=== PATIENT | female | born 1950 | race Caucasian/White ===

== ENCOUNTER → 2018-04-02 | Outpatient (CLI) | payer OTHER | LOC: RAD 10:37 | DX: Z12.31 Encounter for screening mammogram for malignant neoplasm of breast (principal) ==

== ENCOUNTER → 2019-04-30 | Outpatient (CLI) | payer OTHER | LOC: RAD 14:14 | DX: Z12.31 Encounter for screening mammogram for malignant neoplasm of breast (principal) ==

== ENCOUNTER → 2019-09-05 | Outpatient (CLI) | payer OTHER ==
[~2019-09-05] MED LIST: ASA81BEC PO; ASPIRIN325 PO; BYSTOLIC 5 MG5 M1 PO; CALCIUM500 MG PO; EDARBI40 MG PO; EFFIENT10 MG PO; FISH OIL 1,001000 M3 PO; LEVO-T100 MCG PO; LIPITOR 20 MG T20 M1 PO; NEPHRONEX900 MCG/5 PO
== END ==
LOC: CAT 07:46 → SJCVCIMAG 15:30 → CAT 09-06 07:46 → SJCVCIMAG 09-06 15:19
PROVIDERS: ATTEND Internal Medicine Cardiovascular Disease
DX: Z13.6 Encounter for screening for cardiovascular disorders (principal); E78.00 Pure hypercholesterolemia, unspecified; I25.10 Atherosclerotic heart disease of native coronary artery without angina pectoris; R94.31 Abnormal electrocardiogram [ECG] [EKG]; R07.89 Other chest pain; I44.7 Left bundle-branch block, unspecified; I10 Essential (primary) hypertension; R53.83 Other fatigue; E78.5 Hyperlipidemia, unspecified; E03.9 Hypothyroidism, unspecified

== ENCOUNTER → 2019-09-06 | Outpatient (CLI) | payer OTHER | LOC: SJCVCIMAG 07:46 | PROVIDERS: ATTEND Internal Medicine Cardiovascular Disease | DX: I08.1 Rheumatic disorders of both mitral and tricuspid valves (principal); I44.7 Left bundle-branch block, unspecified; R94.31 Abnormal electrocardiogram [ECG] [EKG]; I10 Essential (primary) hypertension ==

== ENCOUNTER → 2019-09-12 | Outpatient (CLI) | payer OTHER | LOC: SJCVCIMAG 07:35 | DX: I44.7 Left bundle-branch block, unspecified (principal); I10 Essential (primary) hypertension; E78.5 Hyperlipidemia, unspecified; Z79.899 Other long term (current) drug therapy ==

== ENCOUNTER 2019-09-20 06:55 | Observation (INO) | payer OTHER ==
[~2019-09-20] VITALS: Ht 162.6 cm; Wt 70.8 kg
[2019-09-20] VITALS (11 sets, daily range): BP systolic 101–145; BP diastolic 40–73
[2019-09-20 07:55] LABS: HEMATOCRIT 44.4 % (37.0-47.0); HEMOGLOBIN 15.3 gm/dL (12.0-15.0); MCH 31.6 pg (26.0-34.0); MCHC 34.6 g/dL (28.0-37.0); MCV 91.2 fL (80.0-100.0); RBC 4.86 mil/uL (4.20-5.00); RDW 13.5 % (10.5-14.5); WBC 7.3 thou/uL (4.0-11.0)
[2019-09-20] MEDS ORDERED: NEPHRONEX900 MCG/5 PO (08:04)
[2019-09-20] MEDS ORDERED: FISH OIL 1,001000 M3 PO (08:06)
[2019-09-20] MEDS ORDERED: CALCIUM500 MG PO (08:06)
[2019-09-20] MEDS ORDERED: LEVO-T100 MCG PO (08:07)
[2019-09-20] MEDS ORDERED: EDARBI40 MG PO (08:09)
[2019-09-20 08:10] LABS: CALCIUM 9.4 mg/dL (8.5-10.1); CREATININE 0.9 mg/dL (0.6-1.0); POTASSIUM 4.2 mmol/L (3.5-5.1)
[2019-09-20] MEDS ORDERED: ASA81BEC PO (08:10)
[2019-09-20] MEDS ORDERED: LIPITOR 20 MG T20 M1 PO (08:11)
--- NOTE | 2019-09-20 08:15 | EKG ---
[facility] [place] [place] [address] ELECTROCARDIOGRAM REPORT Name: OSITO KRAMER Room #: [facility]#: [id number] Admission: 09/20/19 Attend Phys: Toney Castañeda MD, Discharge: Date of : 52 Report #: [id number] THIS REPORT FOR: cc: Jose Alejandro Pretty MD, Stany A. MD Lundgren, Craig H. MD [facility] ~ THIS REPORT FOR: //name// [facility] Test Date: 2019-09-20 Test Time: 07:41:52 Pat Name: OSITO KRAMER Department: Room: Gender: F Digital Assistant: RAFAEL : 1950 Requested By: Toney Castañeda Order Number: [id number] MD: Tushar Sorto Measurements Intervals [place] Rate: 57 P: 56 [place]: 184 QRS: 2 QRSD: 152 T: 87 QT: 443 QTc: 432 Interpretive Statements Sinus bradycardia Left bundle branch block No previous ECG available for comparison Electronically Signed On 09-20-2019 8:13:49 CDT by Tushar Sorto [email or web address] <ELECTRONICALLY SIGNED> By: Tushar Sorto MD, [facility] 09/20/1913 0 Tushar Sorto MD, [facility] /EPI
[2019-09-20] MEDS ORDERED: ASPIRIN325 PO (09:26)
[2019-09-20] MEDS ORDERED: EFFIENT10 MG PO (09:26)
[2019-09-20] MEDS ORDERED: BYSTOLIC 5 MG5 M1 PO (09:26)
--- NOTE | 2019-09-20 10:33 | NUR ---
REC PT FROM APPLICATIONS INSTRUCTOR WITHOUT REPORT, YET WAS ABLE TO ASK QUESTIONS FROM THE RNS THAT DELIVERED. REPORT WAS GIVEN TO KASHMIR RN HERE AND HE SHOWED ME ONLY THREE LINES OF FACTS, NS, AND CLOSURE. PT IS A&OX4, AMB INDEPEDNENTLY NORMALLY, VERY AWARE OF RESTRICTIONS AND IS COMPLYIG SAVE FOR HEAD COMING UP OFF PILLOW. SEE SEPARATE INTERVENTIONS FOR ASSESSMENTS/INTERVENTIONS/VITAL SIGNS POST CARDIAC CATH. [facility] SITE WNL, CDI, SHES QUITE TALKATIVE. WILL DO ADMISSION
--- NOTE | 2019-09-20 16:58 | CATHLAB ---
[facility] [place] [address] INVASIVE PROCEDURE REPORT Name: OSITO KRAMER Room #: 209-P ADM René Lawton#: [id number] Admission: 09/20/19 Attend Phys: Toney Castañeda MD, Discharge: Date of : 52 Report #: [id number] THIS REPORT FOR: cc: Jose Alejandro Pretty MD, Stany A. MD Mancuso, Gerald M. MD [facility] ~ APPROVED REPORT Study performed: 09/20/2019 07:26:42 Patient Details Patient Status: Out-Patient Room #: The patient is a 68 year-old female Event Personnel Toney Castañeda Program Officer, Kavon Alan RN RN, Vel Pal RN, Chelsea Sanches Monitor, Tammy Benites RTR, HAND PASTER Scrub Procedures Performed Art Access - R femoral artery* Left Heart Cath w/or w/o Coronaries 0339011 [facility] [address]187 Initial Mod Sed Same Phys/QHP Gr [id number] Mod Sed Same Phys/QHP Ea 953779 KARLA Place w/wo Plasty Single CIRC 042239 Aortogram Abdominal Peripheral Angio 009881 Indication Chest pain Procedure Narrative The Right Groin^ was infiltrated with 1% Lidocaine subcutaneous anesthesia. A PINNACLE 6FR Sheath #[id number] sheath was inserted into the RFA 6F^. Coronary angiography was performed using coronary diagnostic catheters. The right coronary system was accessed and visualized with a JR4 catheter. The left coronary system was accessed and visualized with a JL4 catheter. The left ventricle was accessed and visualized with a STR PIG catheter. Left ventriculogram was performed in 30 degree projection. The patient tolerated the procedure well and there were no complications associated with the procedure. There was no hematoma. Intraoperative Conscious Sedation Sedation start time: 838 Case end Time: 949 Fentanyl 50 mcg Versed 1 mg [facility] [place] [address] INVASIVE PROCEDURE REPORT Name: NIAOSITO OLAMIDE Room #: 209-P [facility] IN ..#: [id number] Admission: 09/20/19 Attend Phys: Toney Castañeda, Discharge: Date of : 52 Report #: [id number] Fluoro Time: 4.18 minutes Dose: DAP 4288.70 cGycm2 549 mGy Contrast Type and Amount: Omnipaque 100 ml Hemodynamics The aortic pressure is 104/32 mmHg with a mean of 48 mmHg. The left ventricular pressure is 132/13 mmHg with a mean of mmHg. The left ventricular end diastolic pressure is 23 mmHg. PCI Technique Lesion Percutaneous coronary intervention was performed on the Unspecified. A 6FR LAUNCHER EBU 3.0 #[id number] Guide Catheter was used to engage the ostium. A Luge Wire .014 x 182CM #[id number] Interventional Guidewire was used to cross the lesion. BALLOON DILATION A Balloon catheter Sprinter OTW 2.5 x 12 #[id number] was inserted and inflated up to 4.00atm for 18seconds. Additional Inflation: 6.00atm for 21seconds. STENT DEPLOYMENT A stent RESOLUTE MARÍA OTW 2.5 X 12 #[id number] was inserted and inflated up to 12atm for 32seconds. Conclusion 1. Successful PTCA stent of a proximal mid high-grade circumflex OM stenosis of 90 to 95% to 0% with placement of a 2.5 x 12 resolute maría drug-eluting stent FELIX grade III flow moderate distribution distally proximal circumflex with a 50% eccentric lesion will follow #2 left main short free of disease giving rise to LAD and circumflex #3 the LAD is diffusely diseased slightly attenuated with a smaller distal vessel. Although no area for intervention. #4 dominant right coronary with moderate diffuse disease proximally and distally smaller PDA TANESHA but no occlusive disease for intervention. #5 normal ventricular size and systolic function EF 60% #6 abdominal aortogram is intact single renal arteries are patent brisk distal flow no aneurysm. Recommendations and plan continue aggressive risk factor [facility] [address] [place] [address] INVASIVE PROCEDURE REPORT Name: OSITO KRAMER OLAMIDE Room #: 209-P [facility] IN M.R.#: [id number] Admission: 09/20/19 Attend Phys: Toney Castañeda, Discharge: Date of : 52 Report #: [id number] modification. Dual antiplatelet therapy initiated. Transferred to CCU to follow stent protocol. Pain-free and hemodynamically stable. <ELECTRONICALLY SIGNED> By: Toney Castañeda MD, FACC 09/20/191654 54 54 Toney Castañeda MD, FACC /INF
[2019-09-21 00:54] VITALS: BP 128/64
--- NOTE | 2019-09-21 03:48 | NUR ---
ASSESSMENTS CHARTED, MEDS GIVEN CHARTED PATIENT RESTING IN BED AT START OF SHIFT. HAD BEEN TO THE SUGAR GRINDER DURING DAY, RECEIVED STENT TO CIRC. SR/SB ON TELEMETRY, ON ROOM AIR, DENIES PAIN, UP AT JUNE IN ROOM. RIGHT GROIN SITE IS SOFT AND DRY. PLAN OF CARE IS TO DISCHARGE IN AM. ORDERS ALREADY ON CHART. FALL PRECAUTIONS IN PLACE DURING SHIFT.
[2019-09-21 03:58] LABS: HEMATOCRIT 42.2 % (37.0-47.0); HEMOGLOBIN 14.7 gm/dL (12.0-15.0); MCH 31.4 pg (26.0-34.0); MCHC 34.7 g/dL (28.0-37.0); MCV 90.4 fL (80.0-100.0); RBC 4.67 mil/uL (4.20-5.00); RDW 13.4 % (10.5-14.5); WBC 7.9 thou/uL (4.0-11.0)
[2019-09-21 04:09] VITALS: BP 100/31
[2019-09-21 05:27] LABS: ALBUMIN 3.3 g/dL (3.4-5.0); CALCIUM 8.9 mg/dL (8.5-10.1); CREATININE 0.9 mg/dL (0.6-1.0); POTASSIUM 4.1 mmol/L (3.5-5.1); TOTAL BILIRUBIN 0.3 mg/dL (0.2-1.0); TOTAL PROTEIN 6.6 g/dL (6.4-8.2); TROPONIN-I 0.19 ng/mL (<0.06)
[2019-09-21 07:30] VITALS: BP 116/48
--- NOTE | 2019-09-21 09:43 | EKG ---
[facility] [place] [address] ELECTROCARDIOGRAM REPORT Name: OSITO KRAMER Room #: 209-P [facility] M.R.#: [id number] Admission: 09/20/19 Attend Phys: Toney Castañeda MD, Discharge: Date of : 52 Report #: [id number] THIS REPORT FOR: cc: Jose Alejandro Pretty MD, Stany A. MD Couchonnal, Luis F. MD ~ THIS REPORT FOR: //name// [facility] Test Date: 2019-09-21 Test Time: 07:19:52 Pat Name: OSITO KRAMER Department: Room: 209 P Gender: F Technical Business Analyst: Tyler ALBARADO : 1950 Requested By: Toney Castañeda Order Number: [id number] MD: Ian Shelby Measurements Intervals [place] Rate: 58 P: 42 FL: 178 QRS: 3 QRSD: 150 T: 98 QT: 443 QTc: 436 Interpretive Statements Sinus rhythm Left bundle branch block Compared to ECG 09/20/2019 07:41:52 Sinus bradycardia no longer present Electronically Signed On 09-21-2019 9:41:51 CDT by Ian Shelby [email or web address] <ELECTRONICALLY SIGNED> By: Ian Shelby MD 09/21/1941 8 8 Ian Shelby MD /EPI
[2019-09-21] MEDS ORDERED: EFFIENT10 MG PO (10:45)
[2019-09-21 11:29] VITALS: BP 116/48
--- NOTE | 2019-09-21 13:56 | NUR ---
ASSUMED CARE OF PATIENT AT 0700. ASSESSMENT COMPLETED. PATIENT'S RIGHT GROIN SITE WITH GAUNZE AND TEGADERM DRESSING, FREE OF HEMATOMA, EDEMA OR DRAINAGE. DRESSING REMOVED BY DR. ESTEVES. WOUND CARE INSTRUCTIONS GIVEN TO THE PATIENT. PATIENT DENIES ANY CHEST PAIN AND STATES THAT SHE FEELS BETTER THAN SHE DID ON ARRIVAL. IV AND TELE REMOVED. DISCHARGE PAPERWORK AND MEDICATION INSTRUCTIONS REVIEWED WITH THE PATIENT. PATIENT STATES THAT SHE HAS ALL OF HER BELONGINGS. PATIENT TAKEN VIA WHEELCHAIR TO THE ER ENTRANCE TO BE DRIVEN HOME BY HER .
== END 2019-09-21 12:50 | disposition home or self-care (01) ==
LOC: CATH 06:55 → 2N 12:00 → CATH 16:43 → 2N 09-21 12:50
PROVIDERS: ADMIT Internal Medicine Cardiovascular Disease
DX: I25.10 Atherosclerotic heart disease of native coronary artery without angina pectoris (principal); I10 Essential (primary) hypertension; E78.5 Hyperlipidemia, unspecified; E03.9 Hypothyroidism, unspecified; E78.00 Pure hypercholesterolemia, unspecified

== ENCOUNTER → 2019-12-04 | Outpatient (CLI) | payer OTHER | LOC: SJCVCIMAG 08:24 | PROVIDERS: ATTEND Internal Medicine Cardiovascular Disease | DX: I08.1 Rheumatic disorders of both mitral and tricuspid valves (principal); I44.7 Left bundle-branch block, unspecified; I25.10 Atherosclerotic heart disease of native coronary artery without angina pectoris; Z95.5 Presence of coronary angioplasty implant and graft ==

== ENCOUNTER → 2020-05-13 | Outpatient (CLI) | payer OTHER | LOC: LAB 09:52 | PROVIDERS: ATTEND Internal Medicine | DX: U07.1 COVID-19 (principal); R05 Cough ==

== ENCOUNTER → 2020-09-17 | Outpatient (CLI) | payer OTHER | LOC: SJCVCIMAG 07:29 | PROVIDERS: ATTEND Internal Medicine Cardiovascular Disease | DX: I44.7 Left bundle-branch block, unspecified (principal); I25.10 Atherosclerotic heart disease of native coronary artery without angina pectoris; I10 Essential (primary) hypertension; E78.5 Hyperlipidemia, unspecified; Z95.5 Presence of coronary angioplasty implant and graft ==

== ENCOUNTER → 2020-09-30 | Outpatient (CLI) | payer OTHER | LOC: SJCVCIMAG 09:36 | PROVIDERS: ATTEND Internal Medicine Cardiovascular Disease | DX: M79.605 Pain in left leg (principal); M79.89 Other specified soft tissue disorders ==

== ENCOUNTER → 2020-10-30 | Outpatient (CLI) | payer OTHER | LOC: BC 12:57 | PROVIDERS: ATTEND Obstetrics & Gynecology | DX: Z12.31 Encounter for screening mammogram for malignant neoplasm of breast (principal) ==

== ENCOUNTER → 2021-02-18 | Outpatient (CLI) | payer OTHER | LOC: SJCVC 13:41 | PROVIDERS: ATTEND Internal Medicine Cardiovascular Disease | DX: R94.31 Abnormal electrocardiogram [ECG] [EKG] (principal); I45.89 Other specified conduction disorders; I25.10 Atherosclerotic heart disease of native coronary artery without angina pectoris; I10 Essential (primary) hypertension; E78.5 Hyperlipidemia, unspecified; E03.9 Hypothyroidism, unspecified; I44.7 Left bundle-branch block, unspecified; Z79.82 Long term (current) use of aspirin; Z79.899 Other long term (current) drug therapy ==